=== PATIENT | male | born 1965 | race Two or more races ===

== ENCOUNTER → 2016-05-04 | Outpatient (CLI) | payer BC | LOC: RAD 07:43 | PROVIDERS: ATTEND Physician Assistant | DX: R05 Cough (principal) | CPT/HCPCS: 71020 ==

== ENCOUNTER → 2017-05-17 | Outpatient (CLI) | payer BC ==
--- NOTE | 2017-05-17 17:18 | RADIOLOGY REPORT (SQ) ---
EXAM DESCRIPTION: U/S RETROPERITON (RENAL/AORTA) COMPLETED DATE/TIME: 05/17/2017 4:48 pm REASON FOR STUDY: CALCULUS OF KIDNEY N20.0 CALCULUS OF KIDNEY COMPARISON: None. TECHNIQUE: Dynamic and static grayscale images acquired of the kidneys and bladder and recorded on P ACS. Additional selected color Doppler and spectral images recorded. LIMITATIONS: None. FINDINGS: RIGHT KIDNEY: Normal size. Normal echogenicity. No solid or suspicious masses. No hydronep hrosis. No calcifications. LEFT KIDNEY: Normal size. Normal echogenicity. No solid or suspicious masses. No hydronephrosis. No calcifications. BLADDER: No masses. OTHER FINDINGS: No other significant finding. IMPRESSION: NORMAL RENAL AND BLADDER ULTRASOUND. TECHNICAL DOCUMENTATION: JOB ID: [id number] [employer]- All Rights Reserved
--- NOTE | 2017-05-17 17:21 | RADIOLOGY REPORT (SQ) ---
EXAM DESCRIPTION: CHEST SINGLE VIEW COMPLETED DATE/TIME: 05/17/2017 4:22 pm REASON FOR STUDY: RE-CREDENTIALING COMPARISON: 05/04/2016 NUMBER OF VIEWS: One view. TECHNIQUE: Single frontal radiographic view of the chest acquired. LIMITATIONS: None. FINDINGS: LUNGS AND PLEURA: No opacities, masses or pneumothorax. No pleural effusion. MEDIASTINUM AND HILAR STRUCTURES: No masses. Contour normal. HEART AND VASCULAR STRUCTURES: Heart normal in size. Normal vasculature. BONES: No acute findings. HARDWARE: None in the chest. OTHER: No other significant finding. IMPRESSION: NO SIGNIFICANT RADIOGRAPHIC FINDING IN THE CHEST. TECHNICAL DOCUMENTATION: JOB ID: [id number] [employer]- All Rights Reserved [facility]
== END ==
LOC: RAD 15:57
PROVIDERS: ATTEND Internal Medicine Nephrology
DX: I10 Essential (primary) hypertension (principal); N20.0 Calculus of kidney
CPT/HCPCS: 71045; 76770

== ENCOUNTER → 2018-07-24 | Outpatient (CLI) | payer BC ==
--- NOTE | 2018-07-24 08:28 | RADIOLOGY REPORT (SQ) ---
EXAM DESCRIPTION: FOOT LEFT COMPLETE COMPLETED DATE/TIME: 07/24/2018 8:13 am REASON FOR STUDY: ACUTE LEFT ANKLE PAIN (M25.572), SPRAIN OF LEFT ANKLE (S93.402A) M25.572 PAIN IN LEFT ANKLE AND JOINTS OF LEFT FOOT S93.402A SPRAIN OF UNSPECIFIED LIGAMENT OF LEFT ANKLE, INIT COMPARISON: None. NUMBER OF VIEWS: Three views. TECHNIQUE: AP, lateral and oblique radiographic images acquired of the left foot. LIMITATIONS: None. FINDINGS: MINERALIZATION: Normal. BONES: No acute fracture or dislocation. No worrisome bone lesions. JOINTS: No effusions. SOFT TISSUES: No soft tissue swelling. No foreign body. OTHER: No other significant finding. IMPRESSION: 1. NEGATIVE STUDY OF THE LEFT FOOT. TECHNICAL DOCUMENTATION: JOB ID: [id number] [employer]- All Rights Reserved Reading location - IP/workstation name: [email or web address]
--- NOTE | 2018-07-24 08:28 | RADIOLOGY REPORT (SQ) ---
EXAM DESCRIPTION: ANKLE LEFT COMPLETE COMPLETED DATE/TIME: 07/24/2018 8:13 am REASON FOR STUDY: ACUTE LEFT ANKLE PAIN (M25.572), SPRAIN OF LEFT ANKLE (S93.402A) M25.572 PAIN IN LEFT ANKLE AND JOINTS OF LEFT FOOT S93.402A SPRAIN OF UNSPECIFIED LIGAMENT OF LEFT ANKLE, INIT COMPARISON: None. NUMBER OF VIEWS: Three views. TECHNIQUE: AP, lateral, and oblique radiographic images acquired of the left ankle. LIMITATIONS: None. FINDINGS: MINERALIZATION: Normal. BONES: No acute fracture or dislocation. No worrisome bone lesions. JOINTS: No effusions. SOFT TISSUES: Soft tissue swelling. No foreign body. OTHER: No other significant finding. IMPRESSION: 1. Soft tissue swelling. Clinically correlate. 2. No acute osseous findings. TECHNICAL DOCUMENTATION: JOB ID: [id number] [employer]- All Rights Reserved Reading location - IP/workstation name: [email or web address]
== END ==
LOC: RAD 07:53
PROVIDERS: ATTEND Physician Assistant
DX: S93.402A Sprain of unspecified ligament of left ankle, initial encounter (principal); M25.572 Pain in left ankle and joints of left foot; X58.XXXA Exposure to other specified factors, initial encounter; Y93.9 Activity, unspecified; Y92.9 Unspecified place or not applicable

== ENCOUNTER 2019-06-25 10:17 | Emergency (ER) | payer BC ==
[2019-06-25] MEDS ORDERED: NORMAL SALINE 1000 ML 1,000 ML IV ONE (10:22)
[2019-06-25] MEDS ORDERED: TAMSULOSIN HCL 0.4 MG CAP.SR.24H PO ONE (10:22)
[2019-06-25] MEDS ORDERED: KETOROLAC TROMETHAMINE INJ/PF 30 MG/1 ML SDV IV ONE ×2 (10:22→14:26)
--- NOTE | 2019-06-25 10:27 | ER Document Report ---
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 Patient reports he has a history of kidney stones. Patient is a provider. He has already had a CT done which showed a 5 mm stone. He denies fever vomiting diarrhea. Reports he has been eating drinking voiding bowel movement is normal. Reports he has a history of lithotripsy. TRAVEL OUTSIDE OF THE [place] IN LAST 30 DAYS: No - HPI Onset: Just prior to arrival Onset/Duration: Sudden Associated symptoms: None Exacerbated by: Denies Relieved by: Denies Similar symptoms previously: Yes Recently seen / treated by doctor: No - Related Data Allergies/Adverse Reactions: No Known Allergies Allergy (Verified 06/25/19 10:40) Past Medical History - General Information source: Patient - Social History Smoking Status: Unknown if Ever Smoked Cigarette use (# per day): No Frequency of alcohol use: None Drug Abuse: None Occupation: MD Lives with: Family Family History: Reviewed & Not Pertinent Patient has suicidal ideation: No Patient has homicidal ideation: No - Past Medical History Cardiac Medical History: Reports: Hx Hypertension Renal/ Medical History: Reports: Hx Kidney Stones Surgical Hx: Negative - Immunizations Hx Diphtheria, Pertussis, Tetanus Vaccination: Yes Review of Systems - Review of Systems Notes: Review HPI for review of systems., All other systems negative Physical Exam - Vital signs Vitals: Temp Pulse Resp BP Pulse Ox 97.5 F 78 18 143/96 H 98 06/25/19 10:22 06/25/19 10:22 06/25/19 10:22 06/25/19 10:22 06/25/19 10:22 - General General appearance: Alert, Anxious In distress: None - HEENT Head: Normocephalic, Atraumatic Eyes: Normal Neck: Normal, Supple - Respiratory Respiratory status: No respiratory distress Chest status: Nontender Breath sounds: Normal Chest palpation: Normal - Cardiovascular Rhythm: Regular Heart sounds: Normal auscultation Murmur: No - Abdominal Inspection: Normal Distension: No distension Tenderness: Nontender - Back Back: CVA tenderness - Right flank pain - Extremities General upper extremity: Normal ROM General lower extremity: Normal ROM, Normal weight bearing - Neurological Neuro grossly intact: Yes Cognition: Normal Orientation: AAOx4 Linda Coma Scale Eye Opening: Spontaneous [place] Coma Scale Verbal: Oriented [place] Coma Scale Motor: Obeys Commands Linda Coma Scale Total: 15 Speech: Normal - Psychological Associated symptoms: Normal affect, Normal mood - Skin Skin Temperature: Warm Skin Moisture: Dry Skin Color: Normal Course - Re-evaluation Re-evalutation: 06/25/19 10:52 53-year-old male with history of kidney stones presents with complaints of right flank pain. He is a physician. He has already had a CT done this morning which showed a 5 mm stone. Patient is here in pain. Fluids, Toradol and labs ordered. 06/25/19 10:57 CT with abdomen pelvis no oral or IV completed at 10:00 today shows several renal calculi measuring up to 6 mm, with a 3 x 5 mm stone in the right ureteral at level 3 L4-5 mild hydronephrosis with a final impression of 3 x 5 stone right ureter and mild hydroureter nephrosis 06/25/19 10:58 Patient receiving fluids has received Toradol. Reports he is feeling better. 06/25/19 11:32 Discussed labs with patient. Patient reports he used the restroom and started to feel uncomfortable. Patient has received morphine in the past. Morphine ordered. Patient does have a ride home his is at his side. 06/25/19 11:53 Patient has a little bit of concern over the dosage of morphine. He does seem to be in a lot of pain now feeling nauseated from the pain. 06/25/19 13:34 Patient has been sleeping quietly since he received morphine. He is now awake. Reports a little discomfort but declines further narcotics. Requesting Tylenol. Did attempt to contact Dr. Campbell to discuss patient kidney stone but he has left for the day. Patient is scheduled to follow-up with him on Tuesday. He is also been instructed to have a KUB done prior to his appointment. 06/25/19 14:26 Patient reports he still little bit uncomfortable. Discussed pain control. Patient really does not want any further narcotics. We contacted Dr. Maury Shipman via Dr. Sanchez's phone. Discussed Dr. Sanchez's CT, kidney stone, renal function. Dr. Shipman advises 15 more milligrams of Toradol IV with fluids. Dr. Sanchez agrees. 06/25/19 15:45 Dr. Sanchez reports he is feeling a little bit better. He reports he is talked to Dr. Maury Shipman again. We will obtain a KUB and contact Dr. Campbell with the results. 06/25/19 16:25 KUB returned. Stable position of the right mid ureteral calculus. The hospital punch machine operator was contacted to page Dr Campbell per dr arroyo request. 06/25/19 16:34 The hospital punch machine operator does not have Dr. Mcmahon page. Dr. Sanchez instructed on this. He reports he is feeling little bit better and ready to go home. We will discharge him with a dispense pack of [place] and Zofran. He will be given a copy of his CT results and KUB results. He was instructed on the importance of pushing fluids monitoring his symptoms and return for any fever worsening pain. Follow-up with urology Tuesday as scheduled. He verbalized understanding to all instructions 06/25/19 Laboratory 06/25/19 06/25/19 06/25/19 10:36 10:36 12:00 WBC 8.5 RBC 4.99 Hgb 13.4 L Hct 39.9 MCV 80 MCH 26.9 L MCHC 33.6 RDW 15.0 H Plt Count 421 Lymph % (Auto) 23.3 [place] % (Auto) 4.2 Eos % (Auto) 2.0 Baso % (Auto) 2.1 H Absolute Neuts (auto) 5.8 Absolute Lymphs (auto) 2.0 Absolute Monos (auto) 0.4 Absolute Eos (auto) 0.2 Absolute Basos (auto) 0.2 Seg Neutrophils % 68.4 Sodium 139.6 Potassium 4.6 Chloride 105 Carbon Dioxide 25 Anion Gap 10 BUN 8 Creatinine 0.88 Est GFR ( Amer) > 60 Est GFR (MDRD) Non-Af > 60 Glucose 141 H Calcium 9.3 Total Bilirubin 0.4 Direct Bilirubin 0.0 Neonat Total Bilirubin Not Reportable Neonat Direct Bilirubin Not Reportable Neonat Indirect Bili Not Reportable AST 59 ALT 71 H Alkaline Phosphatase 173 H Total Protein 7.2 Albumin 4.1 Urine Color YELLOW Urine Appearance SLIGHTLY-CLOUDY Urine pH 5.0 Ur Specific [place] 1.013 Urine Protein NEGATIVE Urine Glucose (UA) NEGATIVE Urine Ketones NEGATIVE Urine Blood LARGE H Urine Nitrite NEGATIVE Urine Bilirubin NEGATIVE Urine Urobilinogen NEGATIVE Ur Leukocyte Esterase NEGATIVE Urine WBC (Auto) 1 Urine RBC (Auto) 168 Urine Bacteria (Auto) TRACE Squamous Epi Cells Auto <1 Urine Mucus (Auto) OCC Urine Ascorbic Acid NEGATIVE KUB X-Ray 06/25/19 15:44 IMPRESSION: Stable position of the right mid ureteral calculus. - Vital Signs Vital signs: Temp Pulse Resp BP Pulse Ox 98.2 F 89 16 120/77 100 06/25/19 17:18 06/25/19 17:18 06/25/19 17:18 06/25/19 17:18 06/25/19 17:18 - Laboratory Result Diagrams: 06/25/19 10:36 06/25/19 10:36 Laboratory results interpreted by me: 06/25/19 06/25/19 06/25/19 10:36 10:36 12:00 Hgb 13.4 L MCH 26.9 L RDW 15.0 H Baso % (Auto) 2.1 H Glucose 141 H ALT 71 H Alkaline Phosphatase 173 H Urine Blood LARGE H - Diagnostic Test Radiology reviewed: Reports reviewed Discharge - Discharge Clinical Impression: Flank pain, Kidney stone on right side Condition: Stable Disposition: HOME, SELF-CARE Instructions: Flomax ([facility]), Intravenous (IV) Fluids ([facility]), Kidney Stone ([facility]), Toradol Injection ([facility]) Additional Instructions: *You have been evaluated for flank pain, kidney stone *Take medication as prescribed *Follow up with your urologist as scheduled *Return to ED for worsening condition, changes, needs, fever, increased pain *Return to ED if not better in 24 hours Prescriptions: Tamsulosin HCl [Flomax 0.4 mg Cap.sr] 0.4 mg PO DAILY #7 cap.sr.24h Referrals: MATTHEW ESPARZA PA-C [PHYSICIAN PLC ENGINEER] - Follow up in 3-5 days AMY CAMPBELL MD [NO LOCAL MD] - 07/02/19
[2019-06-25 10:56] LABS: ABSOLUTE BASOPHILS # (AUTO) 0.2 10^3/uL (0.0-0.2); ABSOLUTE EOSINOPHILS # (AUTO) 0.2 10^3/uL (0.0-0.6); ABSOLUTE MONOCYTES (AUTO) 0.4 10^3/uL (0.1-1.4); ABSOLUTE NEUT (AUTO) 5.8 10^3/uL (1.7-8.2); BASOPHILS % (AUTO) 2.1 % (0-2); HEMATOCRIT 39.9 % (37.9-51.0); HEMOGLOBIN 13.4 g/dL (13.5-17.0); LYMPHOCYTES % (AUTO) 23.3 % (13-45); MEAN CORPUSCULAR HEMOGLOBIN 26.9 pg (27.0-33.4); MEAN CORPUSCULAR HGB CONC 33.6 g/dL (32.0-36.0); MEAN CORPUSCULAR VOLUME 80 fl (80-97); MONOCYTES % (AUTO) 4.2 % (3-13); PLATELET COUNT 421 10^3/uL (150-450); RED BLOOD COUNT 4.99 10^6/uL (4.35-5.55); SEGMENTED NEUTROPHILS % (AUTO) 68.4 % (42-78); TOTAL CELLS COUNTED % (AUTO) 100 %; WHITE BLOOD COUNT 8.5 10^3/uL (4.0-10.5)
[2019-06-25 11:19] LABS: ALBUMIN 4.1 g/dL (3.5-5.0); ALKALINE PHOSPHATASE 173 U/L (38-126); ANION GAP 10 (5-19); ASPARTATE AMINO TRANSFERASE 59 U/L (17-59); BILIRUBIN,TOTAL 0.4 mg/dL (0.2-1.3); BLOOD UREA NITROGEN 8 mg/dL (7-20); CALCIUM 9.3 mg/dL (8.4-10.2); CARBON DIOXIDE 25 mmol/L (22-30); CHLORIDE 105 mmol/L (98-107); GLUCOSE 141 mg/dL (75-110); POTASSIUM 4.6 mmol/L (3.6-5.0); TOTAL PROTEIN 7.2 g/dL (6.3-8.2)
[2019-06-25] MEDS ORDERED: MORPHINE SULFATE 10 MG/ML INJ IV ONE ×3 (11:30→11:51)
[2019-06-25] MEDS ORDERED: ONDANSETRON HCL INJ/PF 4 MG/2 ML SDV IV ONE (11:51)
[2019-06-25 12:48] LABS: APPEARANCE,URINE SLIGHTLY-CLOUDY; BILIRUBIN,URINE NEGATIVE (NEGATIVE); COLOR,URINE YELLOW; GLUCOSE, URINE NEGATIVE (NEGATIVE); KETONES,URINE NEGATIVE (NEGATIVE); LEUKOCYTE ESTERASE,URINE NEGATIVE (NEGATIVE); NITRITE,URINE NEGATIVE (NEGATIVE); PROTEIN,URINE NEGATIVE (NEGATIVE); URINE SPECIFIC GRAVITY 1.013; UROBILINOGEN,URINE NEGATIVE mg/dL (<2.0)
[2019-06-25] MEDS ORDERED: ACETAMINOPHEN 325 MG TABLET PO ONE ×2 (13:32)
[2019-06-25] MEDS ORDERED: NORMAL SALINE 1000 ML 500 ML IV ONE (14:26)
--- NOTE | 2019-06-25 16:17 | RADIOLOGY REPORT (SQ) ---
EXAM DESCRIPTION: KUB/ABDOMEN (SINGLE VIEW) COMPLETED DATE/TIME: 06/25/2019 4:03 pm REASON FOR STUDY: eval kidney stone COMPARISON: CT of the abdomen pelvis without contrast from 06/25/2019. NUMBER OF VIEWS: One view. TECHNIQUE: Supine radiographic image of the abdomen acquired. LIMITATIONS: None. FINDINGS: BOWEL GAS PATTERN: Nonobstructive bowel gas pattern. CALCIFICATIONS: The round 3 mm calcification that projects to the right of the L4 vertebral body cou ld represents the ureteral calculus described on the correlative CT. There are also several calculi that project within the renal fossae. SOFT TISSUES: No abnormality. HARDWARE: None in the abdomen. BONES: No acute findings. OTHER: No other finding. IMPRESSION: Stable position of the right mid ureteral calculus. TECHNICAL DOCUMENTATION: JOB ID: [id number] 2010 [employer]- All Rights Reserved Reading location - IP/workstation name: [email or web address]
[2019-06-25] MEDS ORDERED: ONDANSETRON ODT 4 MG TAB (6 TAB/ER DISP) PO PRN (16:33)
[2019-06-25] MEDS ORDERED: HYDROCODONE/ACETAMINOPHEN 5-325 MG (6 TAB/ER DISP) PO PRN (16:33)
[2019-06-25 17:18] VITALS: BP 120/77
== END 2019-06-25 17:05 | disposition home or self-care (01) ==
LOC: ER 10:17
DX: N20.0 Calculus of kidney (principal); R10.9 Unspecified abdominal pain; I10 Essential (primary) hypertension; Z87.442 Personal history of urinary calculi
CPT/HCPCS: 96376; 99284; 96361; 96374; 96375; 36415; 85025; 80053; 81001; 74018; J1885; J2270; J2405; J7030

== ENCOUNTER → 2019-06-25 | Outpatient (CLI) | payer BC ==
--- NOTE | 2019-06-25 10:31 | RADIOLOGY REPORT (SQ) ---
EXAM DESCRIPTION: CT ABD/PELVIS NO ORAL OR IV COMPLETED DATE/TIME: 06/25/2019 10:02 am REASON FOR STUDY: (R10.9)UNSPECIFIED ABDOMINAL PAIN R10.9 UNSPECIFIED ABDOMINAL PAIN COMPARISON: 01/19/2016 TECHNIQUE: CT scan of the abdomen and pelvis performed without intravenous or oral contrast. Images reviewed with lung, soft tissue, and bone windows. Reconstructed coronal and sagittal MPR images revi ewed. All images stored on PACS. All CT scanners at this facility use dose modulation, iterative reconstruction, and/or weight based d osing when appropriate to reduce radiation dose to as low as reasonably achievable (ALARA). [facility]: Dose Right [facility]: CareDose [facility]: Dose Right [facility]: Teradose 4D [facility]: Smart Leversense RADIATION DOSE: CT Rad equipment meets quality standard of care and radiation dose reduction techniq ues were employed. CTDIvol: 7.0 mGy. DLP: 396 mGy-cm.mGy. LIMITATIONS: None. FINDINGS: LOWER CHEST: No significant findings. No nodules or infiltrates. NON-CONTRASTED LIVER, SPLEEN, ADRENALS: Evaluation limited by lack of IV contrast. No identified sign ificant masses. PANCREAS: No masses. No peripancreatic inflammatory changes. GALLBLADDER: No identified stones by CT criteria. No inflammatory changes to suggest cholecystitis. RIGHT KIDNEY AND URETER: No suspicious masses. Assessment limited by lack of IV contrast. Several r enal calculi measuring up to 6 mm. 3 x 5 mm stone in the right ureter at level of L4-5. Stone measu res 792 HU. Mild hydronephrosis. LEFT KIDNEY AND URETER: No suspicious masses. Assessment limited by lack of IV contrast. Slightly l ess renal calculi burden compared to the right. No hydronephrosis or hydroureter. AORTA AND RETROPERITONEUM: No aneurysm. No retroperitoneal masses or adenopathy. BOWEL AND PERITONEAL CAVITY: Occasional colonic diverticula. No obvious masses or inflammatory swanson es. No free fluid. APPENDIX: Normal. PELVIS, BLADDER, AND ABDOMINAL WALL:No abnormal masses. No free fluid. Bladder normal. BONES: No significant findings. OTHER: No other significant finding. IMPRESSION: 3 x 5 mm stone right ureter. Mild hydronephrosis. COMMENT: Quality ID # [id number]: Final reports with documentation of one or more dose reduction techniques (e.g., Automated exposure control, adjustment of the mA and/or kV according to patient size, use of iterative reconstruction technique) TECHNICAL DOCUMENTATION: JOB ID: [id number] 2010 [employer]- All Rights Reserved Reading location - IP/workstation name: [email or web address]
== END ==
LOC: RAD 09:50
PROVIDERS: ATTEND Physician Assistant
DX: R10.9 Unspecified abdominal pain (principal)
CPT/HCPCS: 74176

== ENCOUNTER 2020-03-23 22:33 | Emergency (ER) | payer BC ==
[2020-03-23] MEDS ORDERED: NORMAL SALINE 1000 ML 1,000 ML IV ONE (22:38)
[2020-03-23] MEDS ORDERED: DEXAMETHASONE SOD PHOS INJ 10 MG/1 ML VIAL IV ONE (22:43)
[2020-03-23] MEDS ORDERED: LEVALBUTEROL HCL NEB 1.25 MG/3 ML AMPUL NEB ONE (22:43)
--- NOTE | 2020-03-23 22:44 | ER Document Report ---
ED General - General Stated Complaint: dyspnea Time Seen by Provider: 03/23/20 22:38 Primary Care Provider: Darren REESE MD [Primary Care Provider] - Follow up as needed TRAVEL OUTSIDE OF THE [place] IN LAST 30 DAYS: No - HPI Context: Chief Complaint: [Dyspnea] [This is a 54-year-old male who presents to the emergency department complaining of shortness of breath. Patient denies fever, chills, chest pain, nausea, vomiting, loss of sense of taste or loss of sense of smell. Patient states that his was positive for COVID-19. Patient states that he had a COVID-19 test done a couple of weeks ago that was negative but had a antibody titer for Covid check that was positive. Patient is concerned that over the past 3 days or so he just seems to be more short of breath and with minimal activity he notices that his pulse increases. Patient denies history of pulmonary embolism or coronary artery disease. Patient is also complaining of some difficulty with sleeping lately due to his concern over his breathing issue. ] History obtained from [patient] Symptoms began:[2 weeks ago] Onset: [Symptoms became more noticeable about 3 days ago] Timing: [Gradual] Quality: [Sensation of dyspnea] Intensity: [Pain is 0 out of 5] Location: [Lungs] Radiation: [Denies] [The pain does not migrate to a new location.] Aggravating factors: [none] Relieving factors: [none] Positive SOB [Denies] nausea [Denies] vomiting [Denies] sweats [Denies] fever [Denies] cough [Denies] calf or leg swelling or pain - Related Data Allergies/Adverse Reactions: No Known Allergies Allergy (Verified 06/25/19 10:40) Past Medical History - General Information source: Patient - Social History Smoking Status: Never Smoker Family History: Reviewed & Not Pertinent - Past Medical History Cardiac Medical History: Reports: Hx Hypertension Renal/ Medical History: Reports: Hx Kidney Stones - Immunizations Hx Diphtheria, Pertussis, Tetanus Vaccination: Yes Review of Systems - Review of Systems Notes: Review of systems as below unless otherwise stated in HPI. CONSTITUTIONAL [No] fever, [No] chills. EYES [No] eye pain. ENT [No] URI symptoms, [No] sore throat, [No] ear pain. CARDIOVASCULAR [No] chest pain, [No] palpitations, [No] edema. RESPIRATORY [No] Cough, positive SOB, [No] wheezing. GASTROINTESTINAL [No] abdominal pain, [No] nausea, [No] Diarrhea, [No] Vomiting, [No] constipation, [No] melena, [No] rectal bleeding. GENITOURINARY [No] dysuria, [No] urinary frequency, [No] hematuria, [No] urinary urgency MUSCULOSKELETAL [No] Back pain. SKIN [No] Rash. NEUROLOGIC [No] Headache, [No] recent seizures, [No] paralysis,[No] parathesias. ENDOCRINE [No] polyuria. HEMO/LYMPATIC [No] easy brusing PSYCHIATRIC [No] depression. Physical Exam - Vital signs Vitals: Temp 98.0 F 03/23/20 22:33 - Notes Notes: CONSTITUTIONAL [Vital signs reviewed, Patient appears comfortable, Alert and oriented X 3, Normal stature.] HEAD [Atraumatic, Normocephalic.] EYES [Eyes are normal to inspection, No discharge from eyes, Extraocular muscles intact, Sclera are normal, Conjunctiva are normal.] ENT [External ears normal to inspection, Nose examination normal, Mouth normal to inspection.] NECK [Normal ROM, No jugular venous distention, No meningeal signs, ] RESPIRATORY CHEST [Chest is nontender, there is no wheezing, rhonchi, rales or crackles noted] CARDIOVASCULAR [RRR, No murmurs, Normal S1 S2, No rub, No gallop.] ABDOMEN [Abdomen is nontender, No pulsatile masses, No other masses, Bowel sounds normal, No distension, No peritoneal signs, No hernias.] BACK [There is no CVA Tenderness, There is no tenderness to palpation, Normal inspection.] UPPER EXTREMITY [Inspection normal, No cyanosis, No clubbing, No edema, LOWER EXTREMITY [Inspection normal, No cyanosis, No clubbing, No edema, No calf tenderness, NEURO [No focal motor deficits, No focal sensory deficits, Speech normal.] SKIN [Skin is warm, Skin is dry, Skin is normal color.] PSYCHIATRIC [Normal affect. ] Course - Re-evaluation Re-evalutation: 03/24/20 06:22 Results of ED MSE discussed with patient. All questions were answered prior to discharge. Emergency signs and symptoms, reasons to return to the emergency department discussed with patient. - Vital Signs Vital signs: Temp Pulse Resp BP Pulse Ox 98.0 F 81 16 144/109 H 100 03/23/20 22:52 03/24/20 03:16 03/24/20 03:16 03/24/20 03:16 03/24/20 03:16 - Laboratory Results Result Diagrams: 03/23/20 23:12 03/23/20 23:12 Laboratory Results Interpreted: 03/23/20 03/23/20 23:12 23:12 Hgb 13.4 L MCV 78 L MCH 25.8 L RDW 14.8 H Glucose 145 H Alkaline Phosphatase 172 H Critical Laboratory Results Reviewed: Yes Attending or Supervising Physician who Reviewed Labs: AMOL REDMOND IV - Rapid Covid test is positive - Radiology Results Critical Radiology Results Reviewed: No Critical Results Attending or Supervising Physician who Reviewed Radiology: AMOL REDMOND IV - EKG Interpretation by Me Additional EKG results interpreted by me: 03/24/20 00:07 EKG obtained on 03/23/2020 at 2310 hrs. was interpreted by this MD. Findings: Normal sinus rhythm, rate 87, normal axis, [place] interval appears within normal limits, P waves preceding QRS complexes, QRS complexes appear narrow, QTC is 41 9, there are no obvious patterns of ST segment elevation, depression or reciprocal changes seen to suggest acute myocardial ischemia or infarction. There is no prior EKG available for comparison. Impression normal sinus rhythm with nonspecific ST segments. Discharge - Discharge Clinical Impression: COVID-19 virus detected Condition: Stable Disposition: HOME, SELF-CARE Additional Instructions: Return to the Emergency Department without delay if any worse. HOME CARE INSTRUCTIONS & INFORMATION: Thank you for choosing us for your medical needs. We hope you're satisfied with the care you received. After you leave, you must properly care for your problem and, at the same time, observe its progress. Any condition can change. Some illnesses can change rapidly over hours or days. If your condition worsens, return to the Emergency Department or see your physician promptly. ABOUT YOUR X-RAYS AND EKG'S: If you had an EKG or X-rays taken, they have been read by the Emergency Physician. The X-rays and EKG's will also be read by a Radiologist or Microbiological Laboratory Technician within 24 hours. If discrepancies are noted, you will be notified by telephone. Please be certain the ED has a correct telephone number & address where you can be reached. Also, realize that some fractures or abnormalities do not show up on initial X-rays. If your symptoms continue, see your physician. ABOUT YOUR LABORATORY TEST: If you had laboratory tests, the results have been reviewed by the Emergency Physician. Some test results (for example cultures) may not be available for several days. You will be contacted if any test result shows you need additional treatment. Please be certain the ED has a correct telephone number and address where you can be reached. ABOUT YOUR MEDICATIONS: You will receive instructions on how to take your medicine on the prescription label you receive. Additional information may be provided by the Pharmacy. If you have questions afterwards, call the ED for clarification or further instructions. Some prescribed medications may cause drowsiness. Do not perform tasks such as driving a car or operating machinery without consulting your Pharmacist. If you feel you need a refill of pain medication, your condition will need re-evaluation. Please do not call for a refill of any medication. ABOUT YOUR SIGNATURE: Signature of this document acknowledges to followin. Understanding that you received emergency treatment and that you may be released before al medical problems are known or treated. Please be certain the ED has a correct phone number & address where you can be reached. 2. Acknowledgement that you will arrange for follow-up care as recommended. 3. Authorization for the Emergency Physician to provide information to your follow-up Physician in order to maximize your care. AT ANY TIME, IF YOUR SYMPTOMS CHANGE SIGNIFICANTLY OR WORSEN OR YOU DEVELOP NEW SYMPTOMS, RETURN TO THE EMERGENCY DEPARTMENT IMMEDIATELY FOR RE-EVALUATION. OUR GOAL IS TO PROVIDE EXCELLENT MEDICAL CARE! WE HOPE THAT WE HAVE MET YOUR EXPECTATIONS DURING YOUR EMERGENCY DEPARTMENT VISIT AND THAT YOU FEEL YOU HAVE RECEIVED EXCELLENT CARE! Prescriptions: Levalbuterol Tartrate [Xopenex Hfa] 2 puff IH Q4HP PRN #1 [id number] PRN Reason: Dexamethasone [Decadron] 6 mg PO DAILY 7 Days #7 tablet Alprazolam [Xanax 0.25 mg Tablet] 0.25 mg PO HSP PRN #7 tablet PRN Reason: insomnia Referrals: Darren REESE MD [Primary Care Provider] - Follow up as needed
[2020-03-24 00:01] LABS: ABSOLUTE BASOPHILS # (AUTO) 0.1 10^3/uL (0.0-0.2); ABSOLUTE EOSINOPHILS # (AUTO) 0.2 10^3/uL (0.0-0.6); ABSOLUTE LYMPHOCYTES (AUTO) 2.6 10^3/uL (0.5-4.7); ABSOLUTE MONOCYTES (AUTO) 0.6 10^3/uL (0.1-1.4); ABSOLUTE NEUT (AUTO) 5.5 10^3/uL (1.7-8.2); BASOPHILS % (AUTO) 1.2 % (0-2); EOSINOPHILS % (AUTO) 2.4 % (0-6); HEMATOCRIT 40.7 % (37.9-51.0); HEMOGLOBIN 13.4 g/dL (13.5-17.0); LYMPHOCYTES % (AUTO) 28.8 % (13-45); MEAN CORPUSCULAR HEMOGLOBIN 25.8 pg (27.0-33.4); MEAN CORPUSCULAR HGB CONC 32.9 g/dL (32.0-36.0); MEAN CORPUSCULAR VOLUME 78 fl (80-97); MONOCYTES % (AUTO) 6.6 % (3-13); PLATELET COUNT 417 10^3/uL (150-450); RED BLOOD COUNT 5.19 10^6/uL (4.35-5.55); RED CELL DISTRIBUTION WIDTH 14.8 % (11.5-14.0); TOTAL CELLS COUNTED % (AUTO) 100 %
[2020-03-24 00:14] LABS: INTERNATIONAL RATION (INR) 0.96
[2020-03-24 00:15] LABS: PARTIAL THROMBOPLASTIN TIME 32.6 SEC (23.5-35.8)
[2020-03-24 00:18] LABS: ALKALINE PHOSPHATASE 172 U/L (38-126); ANION GAP 9 (5-19); ASPARTATE AMINO TRANSFERASE 40 U/L (17-59); BILIRUBIN,DIRECT 0.3 mg/dL (0.0-0.4); BILIRUBIN,TOTAL 0.5 mg/dL (0.2-1.3); BLOOD UREA NITROGEN 11 mg/dL (7-20); CALCIUM 9.8 mg/dL (8.4-10.2); CARBON DIOXIDE 27 mmol/L (22-30); CHLORIDE 104 mmol/L (98-107); GLUCOSE 145 mg/dL (75-110); POTASSIUM 4.8 mmol/L (3.6-5.0); TOTAL PROTEIN 7.2 g/dL (6.3-8.2)
--- NOTE | 2020-03-24 02:15 | RADIOLOGY REPORT (SQ) ---
EXAM DESCRIPTION: CTA CHEST RadLex: CT CHEST ANGIOGRAPHY WITHOUT THEN WITH IV CONTRAST CLINICAL HISTORY: 54 years Male; severe dyspnea; TECHNIQUE: CT angiogram of the chest using intravenous contrast. MIP reconstructions were performed. All CT scans at this facility use dose modulation, iterative reconstruction, and/or weight based dosing when appropriate to reduce radiation dose to as low as reasonably achievable. COMPARISON: None. FINDINGS: Pulmonary arteries: No filling defects in the central pulmonary arteries. Lungs: Lungs are clear. No pneumothorax or pleural effusion. Mediastinum:No mediastinal mass or adenopathy. Mediastinal vascular structures are unremarkable. No thoracic aortic aneurysm or dissection. Bones:No acute bone findings. IMPRESSION: 1. No CT evidence for pulmonary embolism. 2. No acute pulmonary findings.
[2020-03-24] MEDS ORDERED: ALPRAZOLAM 0.25 MG TABLET PO ONE (02:40)
[2020-03-24 03:17] VITALS: BP 144/109
--- NOTE | 2020-03-24 07:57 | EKG REPORT ---
SEVERITY:- NORMAL ECG - SINUS RHYTHM : Confirmed by: Aditya Melissa MD 24-Mar-2020 07:57:01
== END 2020-03-24 03:16 | disposition home or self-care (01) ==
LOC: ER 22:33
DX: U07.1 COVID-19 (principal); R06.02 Shortness of breath; I10 Essential (primary) hypertension
CPT/HCPCS: 93005; 94640; 99285; 96361; 96374; 36415; 85025; 85610; 85730; 0241U ×4; 80053; 84484; 71275; 93010; J7030; J1100; J7614; C9803

== ENCOUNTER → 2020-03-24 | Outpatient (CLI) | payer BC | LOC: LAB 12:53 | PROVIDERS: ATTEND Internal Medicine Nephrology | DX: R06.00 Dyspnea, unspecified (principal) | CPT/HCPCS: 36415; 86140 ==